=== PATIENT | female | born 1995 | race American Indian/Alaskan Native ===

== ENCOUNTER 2018-02-27 14:58 | Emergency (ER) | payer SELFPAY ==
[2018-02-27 15:53] VITALS: O2SAT 99; BMI 20.9
--- NOTE | 2018-02-27 16:14 | ED PDOC ---
Arrival/HPI - General Chief Complaint: Finger,Hand,&Wrist Time Seen by Provider: 02/27/18 15:10 Historian: Patient - History of Present Illness Narrative History of Present Illness (Text): 02/27/18 16:08 22yr old presents today with worsen right wrist pain. pt states she has a "lump " on the wrist for at least 2 years. pt states she noticed the lump only hurt when she moved the wrist/hand a certain way. pt states for the past 4 days she noticed that the lump is going away but the pain is increasing. pt denies any trauma or injury. pt denies any fever/chills. pt denies numbness, weakness in the extremity. no medications have been taken for pain. pt states the pain is worse with palpation or movement of the wrist/hand. no other complaints. Past Medical History - Provider Review Nursing Documentation Reviewed: Yes - Travel History Have you recently traveled outside [place] w/in the past 3 mons?: No - Psychiatric Hx Substance Use: No Family/Social History - Physician Review Nursing Documentation Reviewed: Yes Family/Social History: Unknown Family HX Smoking Status: Never Smoked Hx Alcohol Use: No Hx Substance Use: No Allergies/Home Meds Allergies/Adverse Reactions: Allergies No Known Allergies Allergy (Verified 02/27/18 15:51) Review of Systems - Review of Systems Constitutional: absent: Fatigue, Fevers Respiratory: absent: SOB, Cough Cardiovascular: absent: Chest Pain, Palpitations Gastrointestinal: absent: Abdominal Pain, Nausea, Vomiting Musculoskeletal: Arthralgias Skin: absent: Rash, Pruritis Neurological: absent: Headache, Dizziness Psychiatric: absent: Anxiety, Depression Physical Exam Vital Signs Reviewed: Yes Vital Signs Temp Pulse Resp BP Pulse Ox 02/27/18 15:51 98.7 F 79 17 113/67 99 Temperature: Afebrile Blood Pressure: Normal Pulse: Regular Respiratory Rate: Normal Appearance: Positive for: Well-Appearing, Non-Toxic, Comfortable Pain Distress: None Mental Status: Positive for: Alert and Oriented X 3 - Systems Exam Head: Present: Atraumatic Mouth: Present: Moist Mucous Membranes Neck: Present: Normal Range of Motion Respiratory/Chest: Present: Clear to Auscultation, Good Air Exchange. No: Respiratory Distress, Accessory Muscle Use Cardiovascular: Present: Regular Rate and Rhythm, Normal S1, S2. No: Murmurs Upper Extremity: Present: Normal ROM, NORMAL PULSES, Tenderness (right hand: + ttp over dorsal aspect of hand just distal the wrist; no erythema, no edema, no ecchymosis; full rom of hand and wrist with pain on flexion and extension. sensation and distal pulses intact cap refill <2. ), Neurovascularly Intact, Capillary Refill < 2s. No: Swelling, Erythema, Deformity Neurological: Present: GCS=15, Speech Normal Skin: Present: Warm, Dry, Normal Color. No: Rashes Psychiatric: Present: Alert, Oriented x 3 Medical Decision Making ED Course and Treatment: 02/27/18 16:20 Patient nontoxic well-appearing in no distress with stable vital signs X-rays of the right wrist: FINDINGS: BONES: Apparent acute triquetrum bone fracture seen on lateral projection. Remaining osseous structures appear intact JOINTS: Normal. No dislocation. SOFT TISSUES: Normal. OTHER FINDINGS: None. IMPRESSION: Apparent acute triquetrum bone fracture. motrin po xray was read by radiologist as acute fracture even though there was no trauma. volar wrist splint applied. will cover patient with kelfex for possible developing cellulitis. I discussed all results with patient advised to followup with the orthopedist for the next 2 days. Return if symptoms worsen persist or new symptoms develop Patient was advised rest, ice, compression and elevation. Patient verbalizes understanding of discharge instructions and need for immediate followup. all aspects of this case were discussed the attending of record. Impression: hand pain, carpal bone fracture Motrin every 6 hours as needed for pain keflex; 1 capsule 4 times daily x 7 days Rest, ice, compression, elevation Followup with the orthopedist within the next 2 days Followup with primary care physician within the next 2 days Return if any other concerning symptoms develop - RAD Interpretation Radiology Orders: 02/27/18 16:07 WRIST, RIGHT 3 VIEWS [RAD] Stat - Medication Orders Current Medication Orders: Discontinued Medications Ibuprofen (Motrin Tab) 600 mg PO STAT STA Stop: 02/27/18 16:08 Last Admin: 02/27/18 16:36 Dose: 600 mg MAR Pain/Vitals Document 02/27/18 16:36 SF (Rec: 02/27/18 16:36 SF [id number]) Pain Reassessment Is This A Pain ReAssessment? Yes Sleep Is patient sleeping during reassessment? No Presence of Pain Presence of Pain Yes Procedures - Splinting Location: right wrist Hand-Made Type: fiberglass Splint: volar Pre-Proc Neuro Vasc Exam: normal Post-Proc Neuro Vasc Exam: normal Disposition/Present on Arrival - Present on Arrival Any Indicators Present on Arrival: No History of DVT/PE: No History of Uncontrolled Diabetes: No Urinary Catheter: No History of Decub. Ulcer: No History Surgical Site Infection Following: None - Disposition Have Diagnosis and Disposition been Completed?: Yes Diagnosis: Hand pain, Carpal bone fracture Disposition: HOME/ ROUTINE Disposition Time: 16:19 Patient Plan: Discharge Patient Problems: Current Active Problems Problem Status Onset Hand pain Acute Wrist pain Acute Condition: GOOD Discharge Instructions (ExitCare): Hand Pain (DC) Additional Instructions: Motrin every 6 hours as needed for pain keflex; 1 capsule 4 times daily x 7 days Rest, ice, compression, elevation Followup with the orthopedist within the next 2 days Followup with primary care physician within the next 2 days Return if any other concerning symptoms develop Prescriptions: Cephalexin [Keflex] 500 mg PO QID #28 capsule Ibuprofen [Motrin] 600 mg PO Q6H PRN #20 tab PRN Reason: pain/fever reduction Referrals: Viral Quintanilla DO [Staff Provider] - Follow up with primary Mirela Vee MD [Staff Provider] - Follow up with primary [facility] [Outside] - Follow up with primary Forms: [employer] (Croatian), WORK NOTE
--- NOTE | 2018-02-27 17:02 | RAD ---
Date of service: 02/27/2018 PROCEDURE: Right Wrist Radiographs. HISTORY: wrist pain COMPARISON: None. FINDINGS: BONES: Apparent acute triquetrum bone fracture seen on lateral projection. Remaining osseous structures appear intact JOINTS: Normal. No dislocation. SOFT TISSUES: Normal. OTHER FINDINGS: None. IMPRESSION: Apparent acute triquetrum bone fracture.
[2018-02-27 17:24] VITALS: BP 115/70; PULSE 75; RESP 16; TEMP 98.6
== END 2018-02-27 17:23 | disposition home or self-care (01) ==
LOC: ED 14:58
DX: S62.101A Fracture of unspecified carpal bone, right wrist, initial encounter for closed fracture (principal); X58.XXXA Exposure to other specified factors, initial encounter; Y92.9 Unspecified place or not applicable; M79.641 Pain in right hand